=== PATIENT | female | born 1990 | race Two or more races ===

== ENCOUNTER 2023-02-06 16:51 | Inpatient (IN) | payer MEDICAID ==
[~2023-02-06] VITALS: Ht 162.6 cm; Wt 108.3 kg
[2023-02-06 17:47] LABS: Basophils # (auto) 0.1 10 ^3/uL (0-0.2); Eosinophils # (auto) 0.2 10 ^3/uL (0-0.8); Monocytes # (auto) 0.5 10 ^3/uL (0-1.3)
[2023-02-06 17:48] LABS: Basophils % (auto) 0.4 % (0.0-2.0); Eosinophils % (auto) 1.2 % (0.0-7.0); Hematocrit 39.1 % (36.0-46.0); Hemoglobin 12.8 g/dL (12.2-16.2); Lymphocytes % (auto) 15.4 % (10.0-50.0); Mean Corpuscular Hemoglobin 25.1 pg (28.0-32.0); Mean Corpuscular Hgb Conc. 32.7 g/dL (32.0-36.0); Mean Corpuscular Volume 76.8 fL (80.0-100.0); Monocytes % (auto) 3.8 % (0.0-12.0); Neutrophils # (auto) 10.1 10 ^3/uL (1.6-8.6); Neutrophils % (auto) 79.2 % (37.0-80.0); Nucleated Red Blood Cells % 0.1 %; Red Blood Cells 5.09 10^6/uL (4.0-5.20); Red Cell Distribution Width 17.6 % (11.8-14.3); White Blood Cell 12.8 10^3/uL (4.4-10.8)
[2023-02-06 18:05] LABS: Albumin 4.2 g/dL (3.4-5.0); Calcium 8.6 mg/dL (8.5-10.1); Potassium 3.8 mmol/L (3.5-5.1)
[2023-02-06 18:11] LABS: BUN/Creatinine Ratio 12.8 (10.0-20.0); Bilirubin, Total 0.3 mg/dL (0.2-1.0); Total Protein 8.1 g/dL (6.4-8.2)
[2023-02-06] MEDS ORDERED: HYDROcodone-ACET 10/325MG TAB PO ONE (19:45)
[2023-02-06] MEDS ORDERED: ONDANSETRON HCL 4 MG/2 ML VIAL IM ONE (19:45)
[2023-02-06] MEDS ORDERED: KETOROLAC TROMETH 60MG/2ML VIAL IM ONE (19:45)
[2023-02-06 21:15] LABS: Urine Bacteria FEW /hpf (None Seen); Urine Blood TRACE /uL (Negative); Urine Mucus FEW (None Seen); Urine WBC 54 /hpf (0 - 5)
[2023-02-06] MEDS ORDERED: cefTRIAXone SOD 1,000 MG VL IM ONE (21:45)
[2023-02-06] MEDS ORDERED: CIPROFLOXACIN HCL 500 MG TAB PO ONE (21:45)
[2023-02-06] MEDS ORDERED: ACETAMINOPHEN 325 MG TAB PO PRN (22:45)
[2023-02-06] MEDS ORDERED: ONDANSETRON HCL 4 MG/2 ML VIAL IV PRN (22:45)
[2023-02-06] MEDS ORDERED: SODIUM CHLORIDE 0.9% 1,000 ML IV ONE (22:45)
[2023-02-06] MEDS ORDERED: HYDROcodone-ACET 5/325MG TAB PO PRN (22:45)
[2023-02-06] MEDS ORDERED: MORPHINE SULFATE INJ 2 MG/ml SYRG IV PRN (22:45)
[2023-02-07 08:22] LABS: Eosinophils # (auto) 0.1 10 ^3/uL (0-0.8); Eosinophils % (auto) 0.8 % (0.0-7.0); Hematocrit 37.4 % (36.0-46.0); Monocytes # (auto) 0.7 10 ^3/uL (0-1.3); White Blood Cell 12.6 10^3/uL (4.4-10.8)
[2023-02-07 08:23] LABS: Basophils # (auto) 0 10 ^3/uL (0-0.2); Basophils % (auto) 0.3 % (0.0-2.0); Lymphocytes # (auto) 1.8 10 ^3/uL (0.4-5.4); Mean Corpuscular Hemoglobin 25.1 pg (28.0-32.0); Mean Corpuscular Hgb Conc. 32.2 g/dL (32.0-36.0); Mean Corpuscular Volume 78.1 fL (80.0-100.0); Monocytes % (auto) 5.9 % (0.0-12.0); Neutrophils # (auto) 9.9 10 ^3/uL (1.6-8.6); Nucleated Red Blood Cells % 0.1 %; Red Blood Cells 4.78 10^6/uL (4.0-5.20); Red Cell Distribution Width 17.3 % (11.8-14.3)
[2023-02-07 08:42] LABS: Potassium 3.7 mmol/L (3.5-5.1)
[2023-02-07 08:53] LABS: BUN/Creatinine Ratio 16.9 (10.0-20.0); Calcium 8.3 mg/dL (8.5-10.1)
[2023-02-07] MEDS: cefTRIAXone 1GM/50ML D5W 50 ML IV SCH (09:10)
[2023-02-07] MEDS: PANTOPRAZOLE 40 MG TAB PO SCH (10:30)
[2023-02-07] MEDS ORDERED: ACET250T20 PO ×2 (17:40→17:43)
[2023-02-07] MEDS ORDERED: MANNITOL FTV 25% 12.5 GM/50 ML 50 ML IV ONE (18:00)
[2023-02-07] MEDS ORDERED: FLUCONAZOLE 100 MG TAB PO ONE (18:15)
[2023-02-07] MEDS: SODIUM CHLORIDE 0.9% 1,000 ML IV SCH (18:29)
[2023-02-07] MEDS: TAMSULOSIN HYDROCHLORIDE 0.4 MG CAP PO SCH (18:29)
[2023-02-07 22:00] VITALS: BP 94/49
[2023-02-08 05:00] VITALS: BP 121/53
[2023-02-08 06:03] LABS: INR 1.02 (0.9-1.15); Partial Thromboplastin Time 30.9 SEC (24.5-34.5)
[2023-02-08 06:09] LABS: Basophils # (auto) 0 10 ^3/uL (0-0.2); Eosinophils # (auto) 0.1 10 ^3/uL (0-0.8); Hemoglobin 11.4 g/dL (12.2-16.2); Mean Corpuscular Volume 78.2 fL (80.0-100.0); Monocytes # (auto) 0.5 10 ^3/uL (0-1.3); Red Cell Distribution Width 17.7 % (11.8-14.3)
[2023-02-08 06:11] LABS: Basophils % (auto) 0.4 % (0.0-2.0); Eosinophils % (auto) 1.7 % (0.0-7.0); Hematocrit 35.5 % (36.0-46.0); Lymphocytes # (auto) 2.1 10 ^3/uL (0.4-5.4); Mean Corpuscular Hemoglobin 25.2 pg (28.0-32.0); Mean Corpuscular Hgb Conc. 32.2 g/dL (32.0-36.0); Monocytes % (auto) 5.9 % (0.0-12.0); Neutrophils # (auto) 5.2 10 ^3/uL (1.6-8.6); Nucleated Red Blood Cells % 0.1 %; Red Blood Cells 4.54 10^6/uL (4.0-5.20); White Blood Cell 7.9 10^3/uL (4.4-10.8)
[2023-02-08 07:32] LABS: Calcium 8.1 mg/dL (8.5-10.1)
[2023-02-08 07:34] LABS: BUN/Creatinine Ratio 13.2 (10.0-20.0); Potassium 3.7 mmol/L (3.5-5.1)
[2023-02-08] MEDS: SODIUM CHLORIDE 0.9% 1,000 ML IV SCH ×4 (08:30→18:00)
[2023-02-08] MEDS: cefTRIAXone 1GM/50ML D5W 50 ML IV SCH (08:37)
[2023-02-08] MEDS: PANTOPRAZOLE 40 MG TAB PO SCH (08:37)
[2023-02-08 09:00] VITALS: BP_SYST 106; BP_SYST 172; BP_DIAS 61; BP_DIAS 64
[2023-02-08] MEDS: acetaZOLAMIDE 250 MG TAB PO SCH ×3 (10:37→22:04)
[2023-02-08] MEDS: KETOROLAC TROMETH 30 MG/ML 1ML VIAL IV PRN ×2 (11:22→22:10)
[2023-02-08 13:00] VITALS: BP_SYST 103; BP_SYST 125; BP_DIAS 49; BP_DIAS 64
[2023-02-08] MEDS: TAMSULOSIN HYDROCHLORIDE 0.4 MG CAP PO SCH (17:00)
[2023-02-08 17:03] VITALS: BP 102/56
[2023-02-08 22:00] VITALS: BP 107/60
[2023-02-09] MEDS: SODIUM CHLORIDE 0.9% 1,000 ML IV SCH ×2 (02:00→08:39)
[2023-02-09] MEDS ORDERED: THROAT LOZENGES(CEPASTAT) MT PRN (02:45)
[2023-02-09 05:00] VITALS: BP 138/72
[2023-02-09] MEDS: acetaZOLAMIDE 250 MG TAB PO SCH ×2 (06:06→14:34)
[2023-02-09] MEDS: cefTRIAXone 1GM/50ML D5W 50 ML IV SCH (08:39)
[2023-02-09 09:00] VITALS: BP 116/69
[2023-02-09 13:00] VITALS: BP 129/74
[2023-02-09] MEDS ORDERED: OMEP-434 PO (14:03)
[2023-02-09] MEDS ORDERED: POTA4.25 PO (14:03)
[2023-02-09] MEDS ORDERED: CEFU500T43 PO (14:03)
[2023-02-09] MEDS ORDERED: KETO10TA PO (14:03)
[2023-02-09 14:44] VITALS: BP 129/74
== END 2023-02-09 15:35 | disposition home or self-care (01) | DRG 463 ==
LOC: ER 16:51 → OVERFLOW 22:50 → WEST WING 02-07 16:37
PROVIDERS: ADMIT Nurse Practitioner; ATTEND Student in an Organized Health Care Education/Training Program
DX: N13.6 Pyonephrosis (principal); N17.0 Acute kidney failure with tubular necrosis; E83.59 Other disorders of calcium metabolism; B37.31 Acute candidiasis of vulva and vagina; E66.01 Morbid (severe) obesity due to excess calories; G93.2 Benign intracranial hypertension; F41.9 Anxiety disorder, unspecified; N29 Other disorders of kidney and ureter in diseases classified elsewhere; N13.9 Obstructive and reflux uropathy, unspecified; Z87.442 Personal history of urinary calculi; Z90.49 Acquired absence of other specified parts of digestive tract; Z68.41 Body mass index [BMI] 40.0-44.9, adult
CPT/HCPCS: 36415; 71045; 74176; 80048; 80053; 81001; 83036; 84484; 85025; 85610; 85730; 87086; G0378; J0696; J1885; J2405

== ENCOUNTER 2023-05-24 14:39 | Inpatient (IN) | payer MEDICAID ==
[~2023-05-24] VITALS: Ht 162.6 cm; Wt 97.2 kg
[~2023-05-24 14:39] MED LIST: ACET250T20 PO; CEFU500T43 PO; KETO10TA PO; OMEP-434 PO; POTA4.25 PO
[2023-05-24] MEDS ORDERED: KETOROLAC TROMETH 30 MG/ML 1ML VIAL IV ONE (15:30)
[2023-05-24] MEDS ORDERED: ONDANSETRON HCL 4 MG/2 ML VIAL IV ONE (15:30)
[2023-05-24] MEDS ORDERED: MORPHINE SULFATE 4 MG/ML SYR/VIAL IV ONE (15:30)
[2023-05-24] MEDS ORDERED: SODIUM CHLORIDE 0.9% 1,000 ML IVB ONE (15:30)
[2023-05-24 15:32] LABS: Basophils # (auto) 0 10 ^3/uL (0-0.2); Eosinophils # (auto) 0.3 10 ^3/uL (0-0.8); White Blood Cell 12.9 10^3/uL (4.4-10.8)
[2023-05-24 15:34] LABS: Basophils % (auto) 0.4 % (0.0-2.0); Eosinophils % (auto) 2.5 % (0.0-7.0); Hematocrit 38.7 % (36.0-46.0); Hemoglobin 12.5 g/dL (12.2-16.2); Lymphocytes # (auto) 1.6 10 ^3/uL (0.4-5.4); Lymphocytes % (auto) 12.5 % (10.0-50.0); Mean Corpuscular Hemoglobin 25.6 pg (28.0-32.0); Mean Corpuscular Hgb Conc. 32.2 g/dL (32.0-36.0); Mean Corpuscular Volume 79.5 fL (80.0-100.0); Monocytes # (auto) 0.5 10 ^3/uL (0-1.3); Monocytes % (auto) 3.6 % (0.0-12.0); Neutrophils # (auto) 10.4 10 ^3/uL (1.6-8.6); Red Blood Cells 4.86 10^6/uL (4.0-5.20); Red Cell Distribution Width 15.6 % (11.8-14.3)
[2023-05-24 15:54] LABS: Alanine Aminotransferase 24 U/L (7-40); Albumin 4.9 g/dL (3.2-4.8); Alkaline Phosphatase 80 U/L (46-116); Anion Gap 8 (5-15); Aspartate Aminotransferase 10 U/L (13-40); BUN/Creatinine Ratio 8.9 (10.0-20.0); Bilirubin, Total 0.3 mg/dL (0.2-1.0); Blood Urea Nitrogen 9 mg/dL (9-23); Calcium 9.3 mg/dL (8.7-10.4); Carbon Dioxide 19 mmol/L (20-30); Chloride 112 mmol/L (98-107); Glucose 111 mg/dL (74-106); Lipase 55 U/L (12-53); Potassium 3.3 mmol/L (3.5-5.1); Sodium 139 mmol/L (136-145); Total Protein 7.6 g/dL (5.7-8.2)
[2023-05-24 16:44] LABS: Urine Amorphous Crystal FEW /hpf (None Seen); Urine Bacteria FEW /hpf (None Seen); Urine Blood TRACE /uL (Negative); Urine Clarity CLOUDY (Clear); Urine Color Yellow (Yellow); Urine Protein, UAD 1+ (Negative); Urine Specific Gravity 1.018 (1.001-1.035); Urine Urobilinogen Normal (Negative); Urine WBC 11 /hpf (0 - 5); Urine pH 8.5 (5.0-8.0)
[2023-05-24] MEDS ORDERED: cefTRIAXone 1GM/50ML D5W 50 ML IV ONE (18:00)
[2023-05-24] MEDS ORDERED: KETOROLAC TROMETH 60MG/2ML VIAL ONE (18:06)
[2023-05-24] MEDS ORDERED: ACETAMINOPHEN 325 MG TAB PO PRN (19:00)
[2023-05-24] MEDS ORDERED: DOCUSATE SOD 100 MG CAP PO PRN (19:00)
[2023-05-24] MEDS: KETOROLAC TROMETH 60MG/2ML VIAL IV PRN (20:28)
[2023-05-24] MEDS: ONDANSETRON HCL 4 MG/2 ML VIAL IV PRN (20:28)
[2023-05-24] MEDS: SODIUM CHLORIDE 0.9% 1,000 ML IV SCH (20:31)
[2023-05-24] MEDS: MORPHINE SULFATE INJ 2 MG/ml SYRG IV PRN (22:34)
[2023-05-24] MEDS: acetaZOLAMIDE 250 MG TAB PO SCH (23:46)
[2023-05-25] VITALS (7 sets, daily range): BP systolic 110–129; BP diastolic 66–67; PULSE 63–78; RESP 16–19; TEMP 98.6–98.7; O2SAT 97–100
[2023-05-25] MEDS: SODIUM CHLORIDE 0.9% 1,000 ML IV SCH ×4 (01:29→21:39)
[2023-05-25] MEDS: KETOROLAC TROMETH 60MG/2ML VIAL IV PRN ×2 (02:28→09:48)
[2023-05-25] MEDS: MORPHINE SULFATE INJ 2 MG/ml SYRG IV PRN ×4 (05:01→21:32)
[2023-05-25] MEDS: ONDANSETRON HCL 4 MG/2 ML VIAL IV PRN ×2 (05:01→09:45)
[2023-05-25] MEDS: acetaZOLAMIDE 250 MG TAB PO SCH ×4 (06:00→22:00)
[2023-05-25 06:47] LABS: Alanine Aminotransferase 35 U/L (7-40); Albumin 4.7 g/dL (3.2-4.8); Alkaline Phosphatase 82 U/L (46-116); Anion Gap 8 (5-15); Aspartate Aminotransferase 27 U/L (13-40); BUN/Creatinine Ratio 9.5 (10.0-20.0); Blood Urea Nitrogen 12 mg/dL (9-23); Calcium 8.9 mg/dL (8.7-10.4); Carbon Dioxide 20 mmol/L (20-30); Chloride 112 mmol/L (98-107); Glucose 103 mg/dL (74-106); Potassium 3.6 mmol/L (3.5-5.1); Sodium 140 mmol/L (136-145)
[2023-05-25 06:48] LABS: Bilirubin, Total 0.4 mg/dL (0.2-1.0); Total Protein 7.3 g/dL (5.7-8.2)
[2023-05-25 07:12] LABS: Basophils # (auto) 0 10 ^3/uL (0-0.2); Eosinophils # (auto) 0.1 10 ^3/uL (0-0.8); Eosinophils % (auto) 0.5 % (0.0-7.0); Lymphocytes # (auto) 1.2 10 ^3/uL (0.4-5.4); Monocytes # (auto) 0.8 10 ^3/uL (0-1.3)
[2023-05-25 07:14] LABS: Basophils % (auto) 0.1 % (0.0-2.0); Hematocrit 36.8 % (36.0-46.0); Hemoglobin 11.8 g/dL (12.2-16.2); Lymphocytes % (auto) 9.5 % (10.0-50.0); Mean Corpuscular Hgb Conc. 32.2 g/dL (32.0-36.0); Mean Corpuscular Volume 80.8 fL (80.0-100.0); Monocytes % (auto) 5.8 % (0.0-12.0); Neutrophils # (auto) 10.9 10 ^3/uL (1.6-8.6); Neutrophils % (auto) 84.1 % (37.0-80.0); Red Blood Cells 4.55 10^6/uL (4.0-5.20); Red Cell Distribution Width 15.5 % (11.8-14.3)
[2023-05-25] MEDS: PANTOPRAZOLE 40 MG TAB PO SCH (09:45)
[2023-05-25] MEDS: cefTRIAXone 1GM/50ML D5W 50 ML IV SCH (09:45)
[2023-05-25] MEDS ORDERED: MANNITOL FTV 25% 12.5 GM/50 ML 50 ML IV ONE (10:15)
[2023-05-25] MEDS ORDERED: TAMS1CAP25 PO (16:31)
[2023-05-25] MEDS ORDERED: NORT10CA PO (16:31)
[2023-05-25] MEDS ORDERED: CHOL50007 PO (16:31)
[2023-05-25] MEDS ORDERED: ACET500C43 PO ×4 (16:32→16:37)
[2023-05-25 16:58] LABS: INR 1.08 (0.9-1.15); Partial Thromboplastin Time 33.2 SEC (24.5-34.5); Prothrombin Time 11.3 sec (9.3-11.8)
[2023-05-25] MEDS: TAMSULOSIN HYDROCHLORIDE 0.4 MG CAP PO SCH (18:27)
[2023-05-25] MEDS: NORTRIPTYLINE HCL 25 MG CAP PO SCH (22:34)
[2023-05-26] VITALS (7 sets, daily range): BP systolic 97–126; BP diastolic 49–74; PULSE 72–91; RESP 16–20; TEMP 97.7–98.6; O2SAT 95–98
[2023-05-26] MEDS: MORPHINE SULFATE INJ 2 MG/ml SYRG IV PRN ×3 (02:49→17:20)
[2023-05-26] MEDS: HYDROcodone-ACET 5/325MG TAB PO PRN ×2 (05:16→09:54)
[2023-05-26] MEDS: SODIUM CHLORIDE 0.9% 1,000 ML IV SCH ×3 (05:16→16:32)
[2023-05-26] MEDS: acetaZOLAMIDE 250 MG TAB PO SCH ×4 (05:27→23:32)
[2023-05-26 06:31] LABS: Anion Gap 8 (5-15); Carbon Dioxide 18 mmol/L (20-30); Chloride 111 mmol/L (98-107); Potassium 3.7 mmol/L (3.5-5.1); Sodium 137 mmol/L (136-145)
[2023-05-26 06:32] LABS: Basophils # (auto) 0 10 ^3/uL (0-0.2); Basophils % (auto) 0.3 % (0.0-2.0); Calcium 8.5 mg/dL (8.7-10.4); Eosinophils # (auto) 0.2 10 ^3/uL (0-0.8); Eosinophils % (auto) 1.6 % (0.0-7.0); Hematocrit 35.8 % (36.0-46.0); Hemoglobin 11.5 g/dL (12.2-16.2); Lymphocytes # (auto) 1.2 10 ^3/uL (0.4-5.4); Lymphocytes % (auto) 10.2 % (10.0-50.0); Mean Corpuscular Hemoglobin 25.7 pg (28.0-32.0); Mean Corpuscular Volume 80.1 fL (80.0-100.0); Monocytes # (auto) 0.8 10 ^3/uL (0-1.3); Neutrophils # (auto) 9.5 10 ^3/uL (1.6-8.6); Neutrophils % (auto) 80.9 % (37.0-80.0); Red Blood Cells 4.47 10^6/uL (4.0-5.20); Red Cell Distribution Width 15.6 % (11.8-14.3); White Blood Cell 11.8 10^3/uL (4.4-10.8)
[2023-05-26 06:37] LABS: BUN/Creatinine Ratio 7.3 (10.0-20.0); Blood Urea Nitrogen 12 mg/dL (9-23); Glucose 100 mg/dL (74-106)
[2023-05-26] MEDS: PANTOPRAZOLE 40 MG TAB PO SCH (09:53)
[2023-05-26] MEDS: cefTRIAXone 1GM/50ML D5W 50 ML IV SCH (09:54)
[2023-05-26] MEDS: POTASSIUM CHL 10 Meq TABLET PO SCH (10:00)
[2023-05-26] MEDS: NORTRIPTYLINE HCL 25 MG CAP PO SCH ×2 (10:00→21:31)
[2023-05-26] MEDS: ONDANSETRON HCL 4 MG/2 ML VIAL IV PRN ×2 (13:16→16:32)
[2023-05-26] MEDS: TAMSULOSIN HYDROCHLORIDE 0.4 MG CAP PO SCH (17:20)
[2023-05-26] MEDS ORDERED: SUMAtriptan SUCCINATE 25 MG TAB PO ONE (17:45)
[2023-05-27] MEDS: SODIUM CHLORIDE 0.9% 1,000 ML IV SCH ×3 (00:20→13:40)
[2023-05-27 05:00] VITALS: BP 104/62; PULSE 94; RESP 16; TEMP 98.3; O2SAT 97
[2023-05-27] MEDS: ONDANSETRON HCL 4 MG/2 ML VIAL IV PRN (05:36)
[2023-05-27] MEDS: MORPHINE SULFATE INJ 2 MG/ml SYRG IV PRN (05:36)
[2023-05-27] MEDS: acetaZOLAMIDE 250 MG TAB PO SCH ×2 (06:31→14:00)
[2023-05-27 06:57] LABS: Anion Gap 11 (5-15); Calcium 8.7 mg/dL (8.5-10.1); Carbon Dioxide 16 mmol/L (20-30); Chloride 112 mmol/L (98-107); Potassium 3.6 mmol/L (3.5-5.1); Sodium 139 mmol/L (136-145)
[2023-05-27 07:04] LABS: BUN/Creatinine Ratio 7.5 (10.0-20.0); Blood Urea Nitrogen 8 mg/dL (9-23); Glucose 93 mg/dL (74-106)
[2023-05-27 07:29] LABS: Urine Bacteria NONE SEEN /hpf (None Seen); Urine Blood 3+ /uL (Negative); Urine Clarity Clear (Clear); Urine Color Yellow (Yellow); Urine Protein, UAD 2+ (Negative); Urine Specific Gravity 1.012 (1.001-1.035); Urine Urobilinogen Normal (Negative); Urine WBC 66 /hpf (0 - 5); Urine pH 6.5 (5.0-8.0)
[2023-05-27 07:38] LABS: Basophils # (auto) 0 10 ^3/uL (0-0.2); Basophils % (auto) 0.3 % (0.0-2.0); Eosinophils # (auto) 0.3 10 ^3/uL (0-0.8); Eosinophils % (auto) 2.7 % (0.0-7.0); Hemoglobin 11.5 g/dL (12.2-16.2); Lymphocytes # (auto) 1.4 10 ^3/uL (0.4-5.4); Lymphocytes % (auto) 14.7 % (10.0-50.0); Mean Corpuscular Hemoglobin 26.4 pg (28.0-32.0); Mean Corpuscular Hgb Conc. 31.8 g/dL (32.0-36.0); Mean Corpuscular Volume 82.8 fL (80.0-100.0); Monocytes # (auto) 0.6 10 ^3/uL (0-1.3); Monocytes % (auto) 6.4 % (0.0-12.0); Neutrophils # (auto) 7.1 10 ^3/uL (1.6-8.6); Neutrophils % (auto) 75.9 % (37.0-80.0); Red Blood Cells 4.35 10^6/uL (4.0-5.20); Red Cell Distribution Width 15.7 % (11.8-14.3); White Blood Cell 9.4 10^3/uL (4.4-10.8)
[2023-05-27 08:00] VITALS: RESP 19; O2SAT 98
[2023-05-27 09:00] VITALS: BP 114/60; PULSE 79; RESP 15; TEMP 98.4; O2SAT 96
[2023-05-27] MEDS: cefTRIAXone 1GM/50ML D5W 50 ML IV SCH (10:03)
[2023-05-27] MEDS: NORTRIPTYLINE HCL 25 MG CAP PO SCH (10:04)
[2023-05-27] MEDS: POTASSIUM CHL 10 Meq TABLET PO SCH (10:05)
[2023-05-27] MEDS: PANTOPRAZOLE 40 MG TAB PO SCH (10:13)
[2023-05-27] MEDS ORDERED: TRAM50TA2 PO (11:21)
[2023-05-27 12:00] VITALS: BP_SYST 107; BP_SYST 129; BP_DIAS 66; BP_DIAS 76; PULSE 75; PULSE 78; RESP 18; RESP 20; TEMP 98.3; TEMP 98.8; O2SAT 98; O2SAT 99
[2023-05-27 14:03] VITALS: TEMP 36.9
== END 2023-05-27 14:49 | disposition home or self-care (01) | DRG 720 ==
LOC: ER 14:39 → EDBD 14:39 → OVERFLOW 19:06 → WEST WING 05-25 15:35
PROVIDERS: ADMIT Nurse Practitioner Family; ATTEND Nurse Practitioner Acute Care
DX: A41.9 Sepsis, unspecified organism (principal); N17.0 Acute kidney failure with tubular necrosis; N13.6 Pyonephrosis; E87.6 Hypokalemia; G93.2 Benign intracranial hypertension; E66.9 Obesity, unspecified; I10 Essential (primary) hypertension; Z82.49 Family history of ischemic heart disease and other diseases of the circulatory system; Z87.442 Personal history of urinary calculi; Z68.36 Body mass index [BMI] 36.0-36.9, adult; Z90.49 Acquired absence of other specified parts of digestive tract
CPT/HCPCS: 36415; 74176; 76775; 80048; 80053; 81001; 81025; 83690; 85025; 85610; 85730; 87086; 96361; 96365; 96366; 96375; G0378; J0696; J1885; J2405